=== PATIENT | female | born 1990 | race Caucasian/White ===

== ENCOUNTER → 2016-09-05 | Outpatient (REF) | payer OTHER | LOC: M SFHCCLAY 13:31 | PROVIDERS: ATTEND Family Medicine | DX: Z01.411 Encounter for gynecological examination (general) (routine) with abnormal findings (principal); R87.5 Abnormal microbiological findings in specimens from female genital organs; Z72.53 High risk bisexual behavior | CPT/HCPCS: 87070; 87077; 87491; 87591; G0123 ==

== ENCOUNTER → 2020-03-10 | Outpatient (REF) | payer OTHER ==
[2020-04-08 22:47] LABS: BASO % 0.3 % (0.0-1.0); EOS # 0.1 10^3/uL (0.0-0.5); EOS % 0.8 % (0.0-3.0); HEMOGLOBIN 14.8 g/dl (12.0-15.5); LYMPH # 2.2 10^3/uL (1.5-5.0); MEAN CORPUSCULAR HEMOGLOBIN 32.8 pg (27.0-33.0); MEAN CORPUSCULAR HGB CONC 32.9 g/dl (32.0-36.5); MEAN CORPUSCULAR VOLUME 99.8 fl (80.0-96.0); MONO # 0.7 10^3/uL (0.0-0.8); MONO % 6.3 % (0.0-5.0); NEUTROPHILS # 7.3 10^3/uL (1.5-8.5); NEUTROPHILS % 71.3 % (36.0-66.0); PLATELET COUNT, AUTOMATED 328 10^3/uL (150-450); RED BLOOD COUNT 4.51 10^6/uL (4.00-5.40); WHITE BLOOD COUNT 10.3 10^3/uL (4.0-10.0)
== END ==
LOC: M SFHCWAGY 11:55
PROVIDERS: ATTEND Obstetrics & Gynecology
DX: O20.0 Threatened abortion (principal)

== ENCOUNTER → 2020-03-12 | Outpatient (REF) | payer OTHER | LOC: M SFHCWAGY 15:53 | PROVIDERS: ATTEND Obstetrics & Gynecology | DX: O20.0 Threatened abortion (principal) ==